=== PATIENT | female | born 1950 | race Caucasian/White ===

== ENCOUNTER → 2017-05-28 | Outpatient (CLI) | payer MEDICARE, BC ==
[~2017-05-28] MED LIST: ANTIVERT 25MG25 MG PO; FAMVIR250 MG PO; PLAQUENIL 200M200 MG PO; PREMARIN .3MG0.3 MG PO; RESTASIS0.05% OP
== END ==
LOC: MC.RAD 09:00
DX: Z12.31 Encounter for screening mammogram for malignant neoplasm of breast (principal)

== ENCOUNTER → 2018-06-07 | Outpatient (CLI) | payer MEDICARE, BC | LOC: COL.RAD 09:35 | DX: N18.3 Chronic kidney disease, stage 3 (moderate) (principal); R03.0 Elevated blood-pressure reading, without diagnosis of hypertension ==

== ENCOUNTER → 2018-07-01 | Outpatient (CLI) | payer MEDICARE, BC | LOC: MC.RAD 09:30 | DX: Z12.31 Encounter for screening mammogram for malignant neoplasm of breast (principal) ==

== ENCOUNTER → 2019-07-27 | Outpatient (CLI) | payer MEDICARE, BC | LOC: MC.RAD 08:34 | DX: Z12.31 Encounter for screening mammogram for malignant neoplasm of breast (principal) ==

== ENCOUNTER → 2020-08-10 | Outpatient (CLI) | payer MEDICARE, BC | LOC: MC.RAD 08:42 | DX: Z12.31 Encounter for screening mammogram for malignant neoplasm of breast (principal) ==

== ENCOUNTER → 2021-09-30 | Outpatient (CLI) | payer MEDICARE, BC | LOC: MC.RAD 09:35 | DX: Z12.31 Encounter for screening mammogram for malignant neoplasm of breast (principal) ==

== ENCOUNTER → 2022-12-05 | Outpatient (CLI) | payer MEDICARE | LOC: MC.RAD 08:09 | DX: Z12.31 Encounter for screening mammogram for malignant neoplasm of breast (principal) ==

== ENCOUNTER → 2023-12-23 | Outpatient (CLI) | payer MEDICARE | LOC: MC.RAD 13:14 | DX: Z12.31 Encounter for screening mammogram for malignant neoplasm of breast (principal) ==